=== PATIENT | male | born 1985 | race Caucasian/White ===

== ENCOUNTER 2017-09-25 23:27 | Inpatient (IN) | payer OTHER ==
[~2017-09-25] VITALS: Ht 182.9 cm; Wt 69.2 kg
[~2017-09-25 23:27] MED LIST: NOHOMEMEDS
[2017-09-26 00:09] LABS: HEMATOCRIT 40.5 % (38.0-50.0); HEMOGLOBIN 14.4 G/DL (12.5-16.6); MCH 30.6 PG (29.0-34.0); MCHC 35.6 G/DL (30.0-36.0); PLATELET COUNT 180 K/uL (156-360); RBC DIS.WIDTH-CV 11.7 % (11.8-14.6); RBC DIS.WIDTH-SD 36.8 % (39-53); RED BLOOD COUNT 4.71 M/uL (4.00-5.50)
[2017-09-26 00:23] LABS: CHLORIDE 106 MEQ/L (99-109); POTASSIUM 3.9 MEQ/L (3.7-5.4); SODIUM 139 MEQ/L (136-147)
[2017-09-26 00:36] LABS: GFR ESTIMATE (CALCULATED) > 59 mL/min/ (58.99-99999); GLUCOSE 107 mg/dL (70-99); SERUM ETHYL ALCOHOL < 10 mg/dL; UREA NITROGEN (BUN) 16 mg/dL (9-23)
[2017-09-26 00:37] LABS: APPEARANCE CLEAR ((CLEAR)); BILIRUBIN NEGATIVE; BLOOD NEGATIVE; COLOR STRAW ((YELLOW)); GLUCOSE (STRIP) NEGATIVE; KETONES NEGATIVE; LEUKOCYTES NEGATIVE; NITRITE NEGATIVE; PROTEIN (STRIP) NEGATIVE; SPECIFIC GRAVITY 1.008 (1.000-1.030); UCUL ADDED? NO; UROBILINOGEN 0.2 MG/DL (0.2-1.0)
[2017-09-26 00:51] LABS: AMPHETAMINE NEGATIVE (500 ng/mL); BARBITURATES NEGATIVE (200 ng/mL); BENZODIAZEPINES NEGATIVE (150 ng/mL); BUPRENORPHINE NEGATIVE (10 ng/mL); COCAINE NEGATIVE (150 ng/mL); METHADONE NEGATIVE (200 ng/mL); METHAMPHETAMINE NEGATIVE (500 ng/mL); OPIATES (MORPHINE) NEGATIVE (100 ng/mL); OXYCODONE NEGATIVE (100 ng/mL); PHENCYCLIDINE NEGATIVE (25 ng/mL); PROPOXYPHENE NEGATIVE (300 ng/mL); THC CANNABINOIDS PRESUMPTIVE POSITIVE (50 ng/mL); TRICYCLIC ANTIDEPRESSANTS NEGATIVE (300 ng/mL)
[2017-09-26 05:05] VITALS: BP 120/62
[2017-09-26 09:58] VITALS: BP 118/57
[2017-09-26 16:02] VITALS: BP 124/61
[2017-09-27 07:39] VITALS: BP 147/63
[2017-09-27 15:15] VITALS: BP 105/60
[2017-09-28 08:23] VITALS: BP 125/78
[2017-09-28 15:39] VITALS: BP 139/80
[2017-09-29 08:11] VITALS: BP 115/58
[2017-09-29] MEDS ORDERED: CITALOPRAM HBR20 MG PO (09:14)
== END 2017-09-29 11:58 | disposition home or self-care (01) | DRG 882 ==
LOC: EME 23:27 → EDOF 09-26 02:15 → 1WEST 09-26 02:15 → ENRESERV 09-26 04:05 → 1WEST 09-26 04:51
PROVIDERS: Emergency Medicine
DX: F43.25 Adjustment disorder with mixed disturbance of emotions and conduct (principal); R45.851 Suicidal ideations; S00.83XA Contusion of other part of head, initial encounter; F12.20 Cannabis dependence, uncomplicated; Z81.8 Family history of other mental and behavioral disorders
CPT/HCPCS: 80048; 81003; 84999; 85027; 90839; 97150 GO; 99281; 99285; G0480; Q0177

== ENCOUNTER 2017-10-22 11:46 | Emergency (ER) | payer BC ==
[~2017-10-22] VITALS: Ht 182.9 cm; Wt 93.6 kg
[~2017-10-22 11:46] MED LIST changes: +CITALOPRAM HBR20 MG PO
[2017-10-22] MEDS ORDERED: ULTRAM50 MG PO (13:23)
[2017-10-22] MEDS ORDERED: PEN-VEE K,VEET500 MG PO (13:23)
[2017-10-22 13:43] VITALS: BP 127/83
== END 2017-10-22 13:45 | disposition home or self-care (01) ==
LOC: EME 11:46
PROC: 0C96XZZ Drainage of Lower Gingiva, External Approach (ICD-10-PCS; principal; 2017-10-22)
DX: K04.7 Periapical abscess without sinus (principal)
CPT/HCPCS: 99281; 99283